=== PATIENT | female | born 1955 | race Caucasian/White ===

== ENCOUNTER 2024-11-19 09:55 | Day surgery (SDC) | payer MEDICARE ==
[~2024-11-19] VITALS: Ht 152.4 cm; Wt 56.3 kg
[~2024-11-19 09:55] MED LIST: LEVOTAB10 PO; LOPE1CAP5 PO; ONDA-83 PO; PRIM50TA6 PO; THERTAB52 PO; VITA-243 PO; [UNRECOGNIZED DRUG - CODE] PO; [UNRECOGNIZED DRUG - CODE] PO; vitamin B1 PO
[2024-11-19] MEDS ORDERED: LIDOCAINE 2% 100 MG/5 ML SDV (FOR ANES.) As Ordered ONE (10:42)
[2024-11-19 11:33] VITALS: TEMP 97.7
[2024-11-19 12:00] VITALS: BP 111/59; O2SAT 94
== END 2024-11-19 12:10 | disposition home or self-care (01) ==
LOC: M OPP 09:55
PROVIDERS: ATTEND Internal Medicine Gastroenterology
DX: Z12.11 Encounter for screening for malignant neoplasm of colon (principal); K62.0 Anal polyp; K57.30 Diverticulosis of large intestine without perforation or abscess without bleeding; K64.0 First degree hemorrhoids; K22.89 Other specified disease of esophagus; K29.70 Gastritis, unspecified, without bleeding; R12 Heartburn; Z88.0 Allergy status to penicillin; Z88.1 Allergy status to other antibiotic agents; Z79.899 Other long term (current) drug therapy